=== PATIENT | male | born 1965 | race Caucasian/White ===

== ENCOUNTER → 2018-09-23 | Outpatient (CLI) | payer OTHER ==
--- NOTE | 2018-09-23 19:57 | CONS ---
CONSULTATION DATE OF SERVICE: 09/23/2018 This patient is a 53-year-old gentleman who has been evaluated in the sleep center for possible obstructive sleep apnea-hypopnea syndrome. HISTORY OF PRESENT ILLNESS/SLEEP-WAKE EVALUATION: Patient's usual sleep schedule on working days is from 9:30 p.m. to 5 a.m. On weekends it is from 10 p.m. to 8 a.m. Sometimes he has problem with falling asleep, although no TV in bedroom. He sleeps in different positions with loud snoring and witnessed episodes of stopped breathing during sleep. Patient wakes up from sleep once with nocturia. Patient denied any symptoms of excessive daytime sleepiness. He does not take any naps. [place] Sleepiness Scale is 1. PAST MEDICAL HISTORY: Positive for hyperlipidemia. PAST SURGICAL HISTORY: Surgery for left shoulder dislocation in 1986. MEDICATIONS: Simvastatin. SOCIAL HISTORY: Positive for smoking for about 15 pack/years. At present patient has significantly decreased the amount of cigarettes to a few cigarettes a day. Alcohol consumption is several beers up to 3 times per week. FAMILY HISTORY: Stroke in his father, heart problems in his grandfather. REVIEW OF SYSTEMS: Snoring, sometimes awakenings from sleep. PHYSICAL EXAMINATION: GENERAL: A pleasant gentleman without distress. VITAL SIGNS: BP 127/80, HR 56, RR 18, height 6 feet, weight 209.6 pounds, body mass index 28.3, temperature 98.1, oxygen saturation at room air 99%. HEENT: PERRLA, EOMI. Evaluation of oropharynx showed tongue protrudes midline. Extremely low position of soft palate. Mallampati IV. Significant restriction of nasal breathing bilaterally; possibly nasal septum deviation. NECK: Supple. No JVD. Thyroid is not palpable. Wide neck; 16-1/2 inches in circumference. LUNGS: Clear to percussion and to auscultation. Good air exchange. No wheezing or rhonchi. HEART: S1, S2 regular. No murmurs, gallops or rubs. ABDOMEN: Soft and nontender. Bowel sounds are present. No organomegaly. EXTREMITIES: No clubbing or cyanosis. SOLAR POOL HEATING INSTALLER: Awake, alert, and oriented X3. Cranial nerves 2 to 7 intact. There is no fasciculation or atrophy. noted. No focal deficits observed. IMPRESSION: 1. Snoring, witnessed episodes of stopped breathing during sleep, extremely low position of soft palate, wide neck; obstructive sleep apnea-hypopnea syndrome. 2. Restriction of nasal breathing. 3. Status post left shoulder dislocation. 4. Hyperlipidemia. PLAN: 1. Polysomnography for evaluation of patient's breathing during sleep. 2. CPAP/BiPAP titration if sleep study confirms obstructive sleep apnea-hypopnea syndrome. 3. Preferable position during sleep on the side. 4. No driving if patient feels any sleepiness. 5. I will see patient for follow up visit to explain results of testing and following plan. Thank you very much for referring this patient for consultation. Sincerely, Jr Pollack MD, PhD, FAASM Diplomat of [place] [employer] [place] [employer] Servicenow Administrator of [facility] [place] MMKHADIJAHL / AMBREENN: [id number] /
== END | disposition home or self-care (01) ==
LOC: SLEEP 16:04
PROVIDERS: ATTEND Internal Medicine
DX: G47.33 Obstructive sleep apnea (adult) (pediatric) (principal); E78.5 Hyperlipidemia, unspecified; F17.210 Nicotine dependence, cigarettes, uncomplicated; Z79.899 Other long term (current) drug therapy; Z98.890 Other specified postprocedural states; Z87.828 Personal history of other (healed) physical injury and trauma
CPT/HCPCS: 99211

== ENCOUNTER → 2019-02-16 | Outpatient (CLI) | payer OTHER ==
--- NOTE | 2019-02-16 15:45 | PN ---
PROGRESS NOTE DATE OF SERVICE: 02/16/2019 A 53-year-old gentleman who has been followed in the Sleep Center for treatment of obstructive sleep apnea-hypopnea syndrome. Recently patient had a polysomnogram which showed severe sleep apnea and subsequently he had CPAP titration. During titration, his respiration normalized. I discussed results of sleep study with patient in detail. Patient received his CPAP unit. Today is his first visit after he started to use CPAP equipment. He is sleeps better with the CPAP. [place] Sleepiness Scale is 0. I checked his CPAP unit. CPAP pressure is 12 cm of water. Usage is 30/30 nights and 27/30 nights for more than 4 hours with average usage 5.6 hours. Quite significantly, 43 L/minute, apnea-hypopnea index, although practically normal 6.6. The last night is only 2.4. MEDICATIONS: Simvastatin. PHYSICAL EXAM: Patient in no distress, BP 116/74, HR 64, RR 16, weight 209, temp 98.4, oxygen saturation at room air 96%. OROPHARYNX: Extremely low soft palate, Mallampati 4. Neck Supple, no JVD. Thyroid is not palpable. LUNGS Clear to percussion and to auscultation. Good air exchange. No wheezing or rhonchi. HEART S1, S2 regular. No murmurs, gallops, or rubs. ABDOMEN Soft and nontender. Bowel sounds are present. No organomegaly appreciated. EXTREMITIES No clubbing or cyanosis. PIANO ASSEMBLER Awake, alert, and oriented X3. Cranial nerves 2 to 7 intact. There is no fasciculation or atrophy. noted. No focal deficits observed. IMPRESSION: 1. Severe obstructive sleep apnea-hypopnea syndrome; apnea-hypopnea index 57 with oxygen desaturation to 74%. Patient demonstrated great compliance with treatment, benefitting from treatment. 2. Quite significant leak from the mask. The patient is using a full-face mask. 3. Hyperlipidemia. 4. Restriction of nasal breathing. 5. Status post shoulder dislocation. PLAN: 1. Patient will continue to use CPAP equipment every night for the whole night. 2. Check options for using different style of mask,. possibly Dream Wear. 3. Sleep hygiene with regular time in bed for at least 8 hours. 4. No driving if feeling sleepiness. Thank you very much for allowing me to participate in the management of your patient. Sincerely, Jr Pollack MD, PhD, FAASM Diplomat of [place] [employer] [place] [employer] Inspector And Clerk of [facility] [place] MMODL / AMBREENN: [id number] /
== END | disposition home or self-care (01) ==
LOC: SLEEP 13:31
PROVIDERS: ATTEND Internal Medicine
DX: G47.33 Obstructive sleep apnea (adult) (pediatric) (principal); E78.5 Hyperlipidemia, unspecified; Z99.89 Dependence on other enabling machines and devices; Z98.890 Other specified postprocedural states; Z79.899 Other long term (current) drug therapy

== ENCOUNTER → 2020-09-12 | Outpatient (CLI) | payer OTHER ==
--- NOTE | 2020-09-12 23:06 | SFUN ---
SLEEP CENTER FOLLOW UP NOTE DATE OF SERVICE: 09/12/2020 This 55-year-old gentleman has been followed in Sleep Center for treatment of obstructive sleep apnea-hypopnea syndrome. Previously I saw the patient more than one and a half year ago. The patient continues to use his CPAP equipment every night. Sometimes he feels that the pressure is too high for him. Sometimes he feels there is some leak from the mask. [place] Sleepiness Scale today is zero. I checked his CPAP unit. Pressure is 12 cm of water. Usage is 30/30 nights and /30 nights for more than 4 hours. Average usage is 6 hours per night. Leak is 79 L/minute, which is high. Apnea-hypopnea index is 8.8, which is above ideal range, which would be below 5. MEDICATION: Simvastatin 40 mg once a day. PHYSICAL EXAMINATION: GENERAL: A pleasant patient in no distress. VITAL SIGNS: BP 110/67, HR 98, RR 15, height 5 feet 11 inches, weight 200 pounds, which is about 9.6 pounds less than during his previous visit. HEENT: PERRANALILIA, EOMI. Evaluation of oropharynx showed tongue protrudes midline. Extremely low position of soft palate. Mallampati IV. NECK: Supple. No JVD. Thyroid is not palpable. LUNGS: Clear to percussion and to auscultation. Good air exchange. No wheezing or rhonchi. HEART: S1, S2 regular. No murmurs, gallops or rubs. ABDOMEN: Soft and nontender. Bowel sounds are present. No organomegaly appreciated. EXTREMITIES: No clubbing or cyanosis. FINISH INSPECTOR: Awake, alert, and oriented X3. Cranial nerves 2 to 7 intact. There is no fasciculation or atrophy. noted. No focal deficits observed. IMPRESSION: 1. Severe obstructive sleep apnea-hypopnea syndrome; apnea-hypopnea index 57 with oxygen desaturation to 74%. The patient demonstrated 100% compliance with treatment. High leak from the mask. Apnea-hypopnea index slightly increased. The patient is benefitting from CPAP therapy. 2. History of severe periodic limb movements. Clinically patient does not complain of leg movements. 3. Hyperlipidemia. 4. Status post left shoulder dislocation. 5. Some restriction of nasal breathing. Patient is using a full-face DreamWear mask. PLAN: 1. Prescription for all necessary CPAP supplies. Patient should replace his full-face DreamWear mask. 2. I changed the regimen of his CPAP unit from CPAP 12 cm of water to AutoPAP with range of pressure 5 to 13 cm of water. I explained to the patient the changes which I made, with the goal to make it more comfortable for him. 3. Patient will continue to use PAP equipment every night for the whole night. 4. Sleep hygiene with regular time in bed for at least 7-1/2 to 8 hours. 5. Precautions related to driving. No driving if feeling sleepiness. 6. I will maintain all necessary prescription for PAP supplies including mask, tube, filters. 7. Watching weight. 8. Follow-up visit in 6 months or earlier if patient has any problems. Thank you very much for allowing me to participate in the management of your patient. Sincerely, Jr Pollack MD, PhD, FAASM Diplomat of [place] [employer] [place] [employer] Sponge Packer of [facility] [place] MMODL / AMBREENN: [id number] /
== END | disposition home or self-care (01) ==
LOC: SLEEP 16:54
PROVIDERS: ATTEND Internal Medicine
DX: G47.33 Obstructive sleep apnea (adult) (pediatric) (principal); E78.5 Hyperlipidemia, unspecified; Z99.89 Dependence on other enabling machines and devices; Z79.899 Other long term (current) drug therapy; Z87.39 Personal history of other diseases of the musculoskeletal system and connective tissue; Z86.59 Personal history of other mental and behavioral disorders

== ENCOUNTER → 2021-12-12 | Outpatient (CLI) | payer OTHER ==
--- NOTE | 2021-12-12 11:13 | P.PN ---
Subjective DATE: 12/12/2021 FOLLOW UP VISIT. Patient with obstructive sleep apnea hypopnea syndrome return to sleep center for follow-up visit. Information from previous visit have been reviewed. Patient is using PAP equipment every night for the whole night, getting PAP supplies in time. CPAP unit fell, patient wanted to be sure that it is working well. The patient does not have significant problems with the mask, PAP unit and humidification. [place] sleepiness scale is 0. I checked information from PAP unit. PAP unit pressure 5-13, average 10.5 cm H2O. Usage is 100 % for more then 4 hours, average 6.4 hours per night. Leak is 52 l/m, which is in increased range. Apnea Hypopnea Index is to 5.1, which is normal. MEDICATIONS:1. Simvastatin 40 mg once a day During physical exam: GENERAL: A pleasant patient without any distress. VITAL SIGNS: BP 137/79, HR 72, RR 18, weight 194.6, temperature 97.8, oxygen saturation at room air 97 % . HEENT: PERRLA, EOMI.low position of soft palate, Mallapati4 . NECK: Supple. No JVD. LUNGS: Clear to percussion and to auscultation. Good air exchange. No wheezing or rhonchi. HEART: S1, S2 regular. ABDOMEN: Soft and nontender.[] EXTREMITIES: No clubbing or cyanosis. CUSTOMER PROGRAM SPECIALIST: Awake, alert, and oriented x3. No focal deficit. Impressions: 1. Obstructive sleep apnea-hypopnea syndrome. Patient demonstrated great compliance with treatment, benefiting from treatment. 2. History of periodic limb movements, clinically no complaints at the present time. 3. Hyperlipidemia. 4. Status post left shoulder dislocation. 5. Restriction of nasal breathing. Plan: 1. Continue using PAP equipment every night for the whole night. 2. To change air filter at least 1-2 times per month. 3. PAP unit should stay lower then position of the head. 4. Advised patient to remove all remaining water from humidifier canister daily and make it dry after each usage. Refill canister with fresh distilled water before each usage. 5. Sleep hygiene with regular time in bed for at least 8 hours. 6. Precautions related to driving. No driving if feel any sleepiness. 7. I will maintain prescription for PAP supplies including mask, tube, filters. 8. Follow up visit in 6 months or earlier if patient has any problems. 9. Watching weight. Thank you very much for allowing me to participate in the management of your patient. Jr Pollack MD, PhD, FAASM. Diplomat of [place] Board of Sleep Medicine, Sleep Medicine Board by [place] Board of Internal Medicine Manager Welding of [facility] [place]
== END ==
LOC: SLEEP 10:25
PROVIDERS: ATTEND Internal Medicine
DX: G47.33 Obstructive sleep apnea (adult) (pediatric) (principal); G47.61 Periodic limb movement disorder; E78.5 Hyperlipidemia, unspecified; Z87.39 Personal history of other diseases of the musculoskeletal system and connective tissue; R06.5 Mouth breathing; Z99.89 Dependence on other enabling machines and devices
CPT/HCPCS: 99212

== ENCOUNTER → 2022-08-14 | Outpatient (CLI) | payer OTHER ==
[2022-08-15 00:10] LABS: African American GFR (CKD) 101.5 (60.0-200.0); Anion Gap 10.5 mmol/L (10.00-18.00); BUN/Creat Ratio 16.79 Ratio (12.00-20.00); Blood Urea Nitrogen 15.9 mg/dL (9.0-27.0); Calcium 9.4 mg/dL (8.7-10.3); Carbon Dioxide 26.1 mmol/L (20.0-27.5); Non-African American GFR(CKD) 87.6 (60.0-200.0); Potassium 4.7 mmol/L (3.5-5.5)
== END | disposition home or self-care (01) ==
LOC: LABPAT 15:38
PROVIDERS: ATTEND Internal Medicine Cardiovascular Disease
DX: Z01.812 Encounter for preprocedural laboratory examination (principal)
CPT/HCPCS: 80048

== ENCOUNTER 2022-08-18 09:03 | Day surgery (SDC) | payer OTHER ==
[~2022-08-18 09:03] MED LIST: LACTATED RINGERS 1,000 ML IV SCH
[2022-08-18 09:28] VITALS: TEMP 97
[2022-08-18] MEDS ORDERED: LIDOCAINE 2% INJ 20 MG/ML (2 ML VIAL) ONE (10:27)
[2022-08-18] MEDS ORDERED: PROPOFOL 10 MG/ML 20 ML VIAL IV ONE (10:27)
[2022-08-18] MEDS ORDERED: BENZOCAINE SPRAY 1 CAN TOPICAL ONE (10:30)
[2022-08-18 11:32] VITALS: RESP 18
[2022-08-18] MEDS ORDERED: SODIUM CHLORIDE 0.9% 1,000 ML IV SCH (11:45)
[2022-08-18 12:21] VITALS: BP 125/82; PULSE 63
--- NOTE | 2022-08-18 23:05 | ECHOT ---
TRANSESOPHAGEAL ECHOCARDIOGRAM PROCEDURES PERFORMED: Transesophageal echocardiogram and cardioversion. LYNDON PROCEDURE INDICATION: Persistent atrial fibrillation to rule out intracardiac thrombus prior to cardioversion. PROCEDURE NOTE: After obtaining informed consent, the patient underwent transesophageal echo in left lateral position using an Omniplane probe. Local and IV sedation were obtained by the yarn bleaching machine operator. The patient tolerated the procedure well without any obvious immediate complications. FINDINGS: 1. There is no intracardiac thrombus within the left atrial appendage, left atrium, right atrium, right ventricle, or left ventricle. 2. Left ventricle has normal size and systolic function. 3. Right atrium appears mildly enlarged. 4. Left ventricle has normal size and systolic function. 5. There is no intracardiac thrombus within the left atrial appendage, left atrium, right atrium, right ventricle or left ventricle. 6. Interatrial septum appears aneurysmally dilated. There is no evidence of left-to- right shunt by color-flow Doppler or [id number]-[id number] shunt by agitated saline contrast study. Mitral valve appears anatomically normal. There is trace mitral regurgitation noted. Tricuspid valve shows trace tricuspid regurgitation. Aortic valve with a 3-leaflet valve. 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 CONCLUSION: No intracardiac thrombus. PLAN: The patient will undergo cardioversion. CARDIOVERSION NOTE: INDICATION: Persistent atrial fibrillation. DESCRIPTION OF PROCEDURE: After obtaining informed consent, ensuring the patient is adequately anticoagulated with Eliquis and ruling out intracardiac thrombus with a transesophageal echo, the patient underwent cardioversion with 150 joules of synchronized DC current. The patient converted to sinus rhythm following a single shock and remained in normal sinus rhythm. He will be discharged home on Eliquis and will follow up with me in a week's time. MMODL / IJN: [id number] /
== END 2022-08-18 12:35 | disposition home or self-care (01) ==
LOC: OR 09:03
PROVIDERS: ATTEND Internal Medicine Cardiovascular Disease
DX: I48.19 Other persistent atrial fibrillation (principal); E78.5 Hyperlipidemia, unspecified; F17.210 Nicotine dependence, cigarettes, uncomplicated
CPT/HCPCS: 93312; 93320; 93325; 92960; J2704; J2001

== ENCOUNTER → 2022-09-01 | Outpatient (CLI) | payer OTHER ==
--- NOTE | 2022-09-02 05:57 | CTL ---
EXAMINATION TYPE: CT Low Dose Lung DATE OF EXAM ORDERED: 09/01/2022 HISTORY: Long-term tobacco use. Lung cancer screening CT DLP: 105.[address] CTDI: 2.3 mGy Automated exposure control for dose reduction was used. SCREENING VISIT: Baseline COMPARISON: None. TECHNIQUE: Low dose computed tomography scan was performed through the chest at 1 mm thick sections a nd reconstructed images in multiple planes at 1 mm and [address] DIAGNOSTIC QUALITY: Satisfactory FINDINGS: LUNG NODULES: Present, detailed below: There is 5 x 3 mm anterior right upper lobe nodule axial image 152 No greater than 6 mm pulmonary nodules identified. LUNGS: COPD: Severity: Mild Fibrosis: Severity: None Lymph nodes: None Other findings: None RIGHT PLEURAL SPACE: Effusion: None Calcification: None Thickening: None Pneumothorax: None LEFT PLEURAL SPACE: Effusion: None Calcification: None Thickening: None Pneumothorax: None HEART: Heart Size: Normal Coronary Calcification: None Pericardial Effusion: None OTHER FINDINGS: Upper abdomen: None Bony thorax: None Supraclavicular region: None Other: Small degree of bilateral subareolar gynecomastia noted IMPRESSION: Mild emphysematous change with single small right upper lobe nodule. CT LUNG RAD AND CT CHEST RECOMMENDATION: Lung-Rad 2 Benign Appearance or Behavior: Continue annual sc reening with LDCT in 12 months. S Modifier (other clinically significant findings): None
== END | disposition home or self-care (01) ==
LOC: RADCTMAIN 18:14
PROVIDERS: ATTEND Family Medicine
DX: Z12.2 Encounter for screening for malignant neoplasm of respiratory organs (principal); J43.9 Emphysema, unspecified; R91.1 Solitary pulmonary nodule; F17.210 Nicotine dependence, cigarettes, uncomplicated
CPT/HCPCS: 71271

== ENCOUNTER → 2023-06-03 | Outpatient (CLI) | payer OTHER ==
--- NOTE | 2023-06-03 13:51 | P.PN ---
Subjective DATE: 06/03/2023 FOLLOW UP VISIT. Patient with obstructive sleep apnea hypopnea syndrome return to sleep center for follow-up visit. Information from previous visit have been reviewed. Patient is using PAP equipment every night for the whole night, getting PAP supplies in time. The patient does not have significant problems with the mask, PAP unit and humidification. [place] sleepiness scale is 0. I checked information from PAP unit. PAP unit pressure 5-13, average 10.6 cm H2O. Usage is 90 % for more then 4 hours, average 6.7 hours per night. Apnea Hypopnea Index is 5.9, which is normal. MEDICATIONS:1. Atorvastatin 40 mg once a day 2. Flecainide During physical exam: GENERAL: A pleasant patient without any distress. VITAL SIGNS: BP 120/72, HR 63, RR 12, weight 204.2, temperature 98.1, oxygen saturation at room air 96 % . HEENT: PERRLA, EOMI.low position of soft palate, Mallapati 4 . NECK: Supple. No JVD. LUNGS: Clear to percussion and to auscultation. Good air exchange. No wheezing or rhonchi. HEART: S1, S2 regular. ABDOMEN: Soft and nontender.[] EXTREMITIES: No clubbing or cyanosis. BUTTERMAKER: Awake, alert, and oriented x3. No focal deficit. Impressions: 1. Obstructive sleep apnea-hypopnea syndrome. Patient demonstrated great compliance with treatment, benefiting from treatment. 2. Hyperlipidemia. 3. Restriction of nasal breathing, patient has to use full face mask. 4. History of periodic limb movements, no complaints of the present time. 5. Status post left shoulder dislocation. I changed regimen of AutoPAP unit to the pressure 5-14 cm of water. Plan: 1. Continue using PAP equipment every night for the whole night. 2. To change air filter at least 1-2 times per month. 3. PAP unit should stay lower then position of the head. 4. Advised patient to remove all remaining water from humidifier canister daily and make it dry after each usage. Refill canister with fresh distilled water before each usage. 5. Sleep hygiene with regular time in bed for at least 8 hours. 6. Precautions related to driving. No driving if feel any sleepiness. 7. I will maintain prescription for PAP supplies including mask, tube, filters. 8. Follow up visit in 6 months or earlier if patient has any problems. 9. Watching weight. Thank you very much for allowing me to participate in the management of your patient. Jr Pollack MD, PhD, FAASM. Diplomat of [place] [employer], Sleep Medicine Board by [place] [employer] Oxygen Equipment Preparer of [facility] [place]
== END ==
LOC: 3 N SLEEP 13:18
PROVIDERS: ATTEND Internal Medicine
DX: G47.33 Obstructive sleep apnea (adult) (pediatric) (principal); E78.5 Hyperlipidemia, unspecified; Z87.39 Personal history of other diseases of the musculoskeletal system and connective tissue; Z99.89 Dependence on other enabling machines and devices; Z87.891 Personal history of nicotine dependence
CPT/HCPCS: 99212

== ENCOUNTER → 2023-09-03 | Outpatient (CLI) | payer OTHER ==
--- NOTE | 2023-09-03 11:58 | CTL ---
EXAMINATION TYPE: CT Low Dose Lung DATE OF EXAM ORDERED: 09/03/2023 HISTORY: Nicotine dependence, current smoker. Lung cancer screening CT DLP: [address] CTDI: 3.1 mGy Automated exposure control for dose reduction was used. SCREENING VISIT: Subsequent COMPARISON: 09/01/2022 TECHNIQUE: Low dose computed tomography scan was performed through the chest at 1 mm thick sections a nd reconstructed images in the coronal plane at [address] DIAGNOSTIC QUALITY: Satisfactory FINDINGS: LUNG NODULES: Present, detailed below: 1. There is a 0.4 cm nodule in the periphery of the anterior lateral right upper lung field. Series 4 image 138. This was present previously and stable. LUNGS: COPD: Severity: None Fibrosis: Severity: None Lymph nodes: None Other findings: RIGHT PLEURAL SPACE: Effusion: None Calcification: None Thickening: None Pneumothorax: None LEFT PLEURAL SPACE: Effusion: None Calcification: None Thickening: None Pneumothorax: None HEART: Heart Size: Normal Coronary calcification: Mild coronary artery calcifications present. Pericardial effusion: None OTHER FINDINGS: Upper abdomen: Normal Bony thorax: Normal Supraclavicular region: Normal Other: Ascending thoracic aorta at the level the main pulmonary artery measures 4.2 cm. No interval e nlargement. The main pulmonary artery at the bifurcation measures 2.7 cm. IMPRESSION: 1. Stable 0.4 cm right upper lung field nodule 2. Ascending thoracic aortic aneurysm measuring 4.[address] CHEST RECOMMENDATION: LOW-dose CT chest one year CT LUNG RAD: Lung-Rad 2 Benign Appearance or Behavior
== END | disposition home or self-care (01) ==
LOC: RADCTMAIN 10:12
PROVIDERS: ATTEND Family Medicine
DX: Z12.2 Encounter for screening for malignant neoplasm of respiratory organs (principal); R91.1 Solitary pulmonary nodule; F17.210 Nicotine dependence, cigarettes, uncomplicated; I71.21 Aneurysm of the ascending aorta, without rupture
CPT/HCPCS: 71271

== ENCOUNTER → 2024-06-01 | Outpatient (CLI) | payer OTHER ==
[2024-06-01 10:29] VITALS: BP 111/74; PULSE 58; RESP 16; TEMP 97.8
--- NOTE | 2024-06-01 12:04 | P.PROGSL ---
Subjective DATE: 06/01/2024 FOLLOW UP VISIT. Patient with obstructive sleep apnea hypopnea syndrome return to sleep center for follow-up visit. Information from previous visit have been reviewed. Patient is using PAP equipment every night for the whole night, getting PAP supplies in time. The patient does not have significant problems with the mask, PAP unit and humidification. [place] sleepiness scale is 0, which is perfect. I checked information from PAP unit. PAP unit pressure 5-15, average 9.4 cm H2O. Usage is 100% for more then 4 hours, average 7.6 hours per night. Leak is increased to 49 l/m. Apnea Hypopnea Index is 3.0, which is normal. MEDICATIONS have been reviewed, please see below. During physical exam: GENERAL: A pleasant patient without any distress. VITAL SIGNS: Please see below, weight is 203 lbs. HEENT: PERRLA, EOMI.low position of soft palate, Mallapati 4 . NECK: Supple. No JVD. LUNGS: Clear to percussion and to auscultation. Good air exchange. No wheezing or rhonchi. HEART: S1, S2 regular. ABDOMEN: Soft and nontender.[] EXTREMITIES: No clubbing or cyanosis. MANAGER OF SALES: Awake, alert, and oriented x3. No focal deficit. Impressions: 1. Obstructive sleep apnea-hypopnea syndrome. Patient demonstrated great compliance with treatment, benefiting from treatment. 2. Hyperlipidemia. 3. History of periodic limb movements, no complaints at the present time. 4. Restriction of nasal breathing, patient is using full facemask. 5. Status post dislocation of left shoulder. Plan: 1. Continue using PAP equipment every night for the whole night. 2. Sleep hygiene with regular time in bed for at least 7.5-8 hours 3. PAP unit should stay lower then position of the head. 4. Advised patient to remove all remaining water from humidifier canister daily and make it dry after each usage. Refill canister with fresh distilled water before each usage. 5. Watching weight. 6. Precautions related to driving. No driving if feel any sleepiness. 7. I will maintain prescription for PAP supplies including mask, tube, filters. 8. Follow up visit in 8 months or earlier if patient has any problems. Thank you very much for allowing me to participate in the management of your patient. Jr Pollack MD, PhD, FAASM. Diplomat of [place] [employer], Sleep Medicine Board by [place] [employer] Grading Supervisor of [facility] [place] Objective - Vital Signs Vital Signs: Vital Signs Temp 97.8 F 06/01/24 10:28 Pulse 58 L 06/01/24 10:28 Resp 16 06/01/24 10:28 BP 111/74 06/01/24 10:28 Pulse Ox 97 06/01/24 10:28 FiO2 Intake & Output 05/31/24 06/01/24 06/01/24 18:59 06:59 18:59 Weight 92.079 kg Home Medications: Home Medications Medication Instructions Recorded Confirmed Type Simvastatin [Zocor] 40 mg PO HS 01/14/16 08/18/22 History Apixaban [Eliquis] 5 mg PO BID 08/13/22 08/18/22 History Metoprolol Succinate [Metoprolol 25 mg PO DAILY 08/13/22 06/01/24 History Succinate ER] Flecainide Acetate [Tambocor] 100 mg PO BID 06/01/24 06/01/24 History
== END ==
LOC: 3 N SLEEP 10:16
PROVIDERS: ATTEND Internal Medicine
DX: G47.33 Obstructive sleep apnea (adult) (pediatric) (principal); E78.5 Hyperlipidemia, unspecified; G47.61 Periodic limb movement disorder; R06.02 Shortness of breath; Z98.890 Other specified postprocedural states; Z99.89 Dependence on other enabling machines and devices; Z87.891 Personal history of nicotine dependence; Z79.899 Other long term (current) drug therapy
CPT/HCPCS: 99212

== ENCOUNTER → 2024-10-03 | Outpatient (CLI) | payer OTHER ==
--- NOTE | 2024-10-03 13:23 | CTL ---
EXAMINATION TYPE: CT Low Dose Lung DATE OF EXAM ORDERED: 10/03/2024 COMPARISON: Prior study dated September 03, 2023 and September 01, 2022 CLINICAL INDICATION: Male, 59 years old with history of Z12.2 ENCNTR SCREEN FO Z87.891 NICOTINE DEPEN DENCE; PH[facility], Personal history of tobacco use., Lung cancer screening, History of Smoking/tobacco use. TECHNIQUE: Low dose computed tomography scan was performed through the chest at 1 mm thick sections a nd reconstructed images in multiple planes at 1 mm and [address] DLP: 92.[address] CTDI: 2.3 mGy Automated exposure control for dose reduction was used. CT DIAGNOSTIC QUALITY: Satisfactory FINDINGS: LUNG NODULES: Present, detailed below: There is stable 4 to 5 mm anterior right upper lung pulmonary nodule axial image 142. No new greater than 4 mm noncalcified pulmonary nodules. LUNGS: COPD: Severity: Mild Fibrosis: Severity: None Lymph nodes: None Other findings: None RIGHT PLEURAL SPACE: Effusion: None Calcification: None Thickening: None Pneumothorax: None LEFT PLEURAL SPACE: Effusion: None Calcification: None Thickening: None Pneumothorax: None HEART: Heart Size: Normal Coronary Calcification: Mild Pericardial Effusion: None OTHER FINDINGS: Upper abdomen: None Bony thorax: None Supraclavicular region: None Other: Small degree of bilateral subareolar gynecomastia redemonstrated. IMPRESSION: No new or enlarging greater than 4 mm noncalcified pulmonary nodules. CT LUNG RAD AND CT CHEST RECOMMENDATION: Lung-Rad 2 Benign Appearance or Behavior: Continue annual sc reening with LDCT in 12 months. S Modifier (other clinically significant findings): None [facility], , 10/03/2024 1:21 PM
== END | disposition home or self-care (01) ==
LOC: RADCTMAIN 11:56
PROVIDERS: ATTEND Family Medicine
DX: Z12.2 Encounter for screening for malignant neoplasm of respiratory organs (principal); Z87.891 Personal history of nicotine dependence
CPT/HCPCS: 71271